=== PATIENT | male | born 1960 | race Caucasian/White ===

== ENCOUNTER 2019-10-14 08:45 | Emergency (ER) | payer OTHER ==
[~2019-10-14] VITALS: Ht 185.4 cm; Wt 77.1 kg
--- NOTE | 2019-10-14 08:45 | NUR ---
PT AGUILAR ZHU AND PLACED IN BED 7.
[2019-10-14 08:54] VITALS: BP 129/77
--- NOTE | 2019-10-14 09:05 | NUR ---
PT BIBA C/O L [place]AY[place] PAIN FROM TRIPPING. PT DENIES SYNCOPE AT THE TIME OF THE FALL. ABRIASIONS ON R AND L [place]. R AND L [place] ARE TENDEDR TO TOUCH. NO ACTIVE BLEEDING PRESENT. PT IS ABLE TO MOVE BOTH LEGS. R AND L [place] ARE WARM TO TOUCH. NO VISIBLE SWELLING. VSS. BED IN LOWEST POSITION. PMHX: ASTHMA ALLERGIES: HALOPERIDOL
--- NOTE | 2019-10-14 09:15 | NUR ---
DR. COX AT BEDSIDE.
[2019-10-14] MEDS ORDERED: KETOROLAC 60 MG/2 ML VIAL IM ONE (09:20)
[2019-10-14] MEDS ORDERED: ALBUTEROL SULFATE/IPRATROPIU 3 ML SOL IH ONE (09:20)
[2019-10-14] MEDS ORDERED: predniSONE 20 MG TAB PO ONE (09:20)
[2019-10-14] MEDS ORDERED: ALBUTEROL 0.083% 2.5 MG/3 ML NEBU INH ONE (09:20)
--- NOTE | 2019-10-14 09:29 | NUR ---
respiratory at bedside for breathing treatment
[2019-10-14] MEDS ORDERED: BACITRACIN OINT 500 UNITS/GM PKT TP ONE (09:40)
[2019-10-14 09:49] VITALS: BP 129/77
--- NOTE | 2019-10-14 09:49 | NUR ---
Patient discharged with v/s stable. Written and verbal after care instructions given and explained. Patient alert, oriented and verbalized understanding of instructions. Ambulatory with steady gait. All questions addressed prior to discharge. ID band removed. Patient advised to follow up with PMD. Rx of PREDNISONE 20MG TABLET AND MOTRIN 800MG TAB given. Patient educated on indication of medication including possible reaction and side effects. Opportunity to ask questions provided and answered. PT GIVEN BUS PASS.
== END 2019-10-14 09:45 | disposition home or self-care (01) ==
LOC: MED 08:45
DX: S80.812A Abrasion, left lower leg, initial encounter (principal); S80.811A Abrasion, right lower leg, initial encounter; R05 Cough; F17.210 Nicotine dependence, cigarettes, uncomplicated; R06.2 Wheezing; Z88.8 Allergy status to other drugs, medicaments and biological substances; X58.XXXA Exposure to other specified factors, initial encounter; Y93.89 Activity, other specified; Y92.89 Other specified places as the place of occurrence of the external cause; Y99.8 Other external cause status
CPT/HCPCS: 94640; 96372; 99283; J1885; J7512; J7613

== ENCOUNTER 2019-11-03 01:50 | Emergency (ER) | payer OTHER, SELFPAY ==
[~2019-11-03] VITALS: Ht 185.4 cm; Wt 81.6 kg
[2019-11-03 01:55] VITALS: BP 122/98
--- NOTE | 2019-11-03 01:55 | NUR ---
PT BIBA BLS. TAKEN TO BED 9
--- NOTE | 2019-11-03 02:00 | NUR ---
59 YO M BIBA FOR C/C OF SOB, COUGH, AND NASAL CONGESTION X2 WEEKS. [place] [facility] WAS CALLED BECAUSE THE PT WAS TRYING TO JUMP OVER A FENCE TO GET INTO A BOARD AND CARE WHERE HE WAS SEEKING PENITENTIARY FOR THE NIGHT. PT TOLD PD HE WAS EXPERIENCING SOB SO PD CALLED AMBULANCE UNIT. PER PT HE HAS HAD 7/10 BODY ACHES, N/V/D, AND THROAT PAIN. PT PRESENT WITH 98% ON ROOM AIR. S1S2 HEARD, BILATERAL CRACKLES AUSCULTATED AT BASES, BOWEL SOUNDS NORMOACTIVE TRHOUGHOUT. BED LOCKED AND IN LOWEST POSITION. SIDE RAILS X1. ALLERGIES: HALDOL MED HX: BIPOLAR, ASTHMA RX: DEPICOTE, COGENTIN, latuda, albuterol
--- NOTE | 2019-11-03 02:13 | NUR ---
STANLEY YBARRA AT BEDSIDE EVALUATING PT.
--- NOTE | 2019-11-03 02:30 | NUR ---
Iam chaney in [place] - 11/03/19 at 0241 by [email or web address] covid swab collected and sent to lab
--- NOTE | 2019-11-03 02:35 | NUR ---
PT PROVIDED WITH HOMELESS RESOURCE PACKET, MEAL, BLANKET AND BUS PASS BEFORE DISCHARGE.
--- NOTE | 2019-11-03 02:39 | NUR ---
COVID SWAB COLLECTED AND SENT TO LAB.
[2019-11-03 02:50] VITALS: BP 122/98
--- NOTE | 2019-11-03 02:50 | NUR ---
Patient discharged with v/s stable. Written and verbal after care instructions given and explained. Patient verbalized understanding. Ambulatory with steady gait. All questions addressed prior to discharge. Advised to follow up with PMD.
== END 2019-11-03 02:50 | disposition home or self-care (01) ==
LOC: MED 01:50 → EEVIPCON 01:50 → MED 02:50
DX: S51.812A Laceration without foreign body of left forearm, initial encounter (principal); F17.200 Nicotine dependence, unspecified, uncomplicated; J45.909 Unspecified asthma, uncomplicated; J44.9 Chronic obstructive pulmonary disease, unspecified; Z88.8 Allergy status to other drugs, medicaments and biological substances; W45.8XXA Other foreign body or object entering through skin, initial encounter; Y93.89 Activity, other specified; Y92.89 Other specified places as the place of occurrence of the external cause; Y99.8 Other external cause status
CPT/HCPCS: 99283; U0003